=== PATIENT | female | born 1940 | race Caucasian/White ===

== ENCOUNTER 2018-04-09 11:43 | Inpatient (IN) | payer OTHER, MEDICARE ==
[~2018-04-09] VITALS: Ht 162.6 cm; Wt 100.0 kg
[~2018-04-09 11:43] MED LIST: ALPR0.25 PO; ASPI81TA82 PO; CO Q100C9 PO; FLUT50SP EACH NARE; LACTCAP7 PO; LISI-360 PO; MAGN400C2 PO; VITA10002 PO; VITA200017 PO; ZOCO40TA PO
[2018-04-09 11:50] VITALS: BP 152/83; PULSE 111; RESP 16; TEMP 99.4; O2SAT 98
--- NOTE | 2018-04-09 12:22 | PD ---
HPI Chief Complaint: GI Complaint Time Seen by Provider: 11:58 Travel History International Travel<30 days: No Contact w/Intl Traveler<30days: No Traveled to known affect area: No History of Present Illness HPI 77 YO F with PMH of HTN and HLD presents to the ED for evaluation of ~12 hour history of nausea, lower abdominal cramping, watery diarrhea and BRBPR. Patient states that the symptoms onset a few hours after eating a "lobster tail that had been in the freezer a while." She endorses chills. She denies vomiting, chest pain, palpitations, shortness of breath, dysuria, hematuria. Last colonoscopy 5 years ago, negative at that time. Endorses history of hysterectomy, no other abdominal surgeries noted. Endorses history of hemorrhoids. PFSH Past Medical History Arthritis: Yes Asthma: No Autoimmune Disease: No Anxiety: No Depression: No Heart Rhythm Problems: No Cancer: No Cardiovascular Problems: No High Cholesterol: Yes Chest Pain: No Congestive Heart Failure: No COPD: No Cerebrovascular Accident: No Diabetes: No Endocrine: No GERD: Yes Genitourinary: No Hepatitis: No Hiatal Hernia: No Immune Disorder: No Kidney Stones: No Musculoskeletal: Yes (ARTHRITIS, SCOLEOSIS) Neurologic: No Psychiatric: No Reproductive: Yes (POST MENOPAUSAL BLEEDING) Respiratory: No Migraines: No Renal Failure: No Seizures: No Sickle Cell Disease: No Sleep Apnea: No Thyroid Disease: No Ulcer: No Past Surgical History Abdominal Surgery: No AICD: No Arteriovenous Shunt: No Body Medical Devices: NONE Cardiac Surgery: No Ear Surgery: No Endocrine Surgery: No Eye Surgery: No Genitourinary Surgery: No Gynecologic Surgery: Yes (D&C, YENNY OOPHERECTOMY) Insulin Pump: No Joint Replacement: Yes Oral Surgery: No Pacemaker: No Thoracic Surgery: No Social History Tobacco Use: No Substance Use: No Allergies-Medications (Allergen,Severity, Reaction): Coded Allergies: meperidine (Unverified Allergy, Severe, Nausea/Vomiting, 06/21/17) Reported Meds & Prescriptions Reported Meds & Active Scripts Active Reported Probiotic (Lactobacillus) Cap 1 Cap PO DAILY Magnesium (Magnesium Oxide (Mg Supplement) 400 Mg Cap 400 Mg PO DAILY Co Q 10 (Coenzyme Q10) 100 Mg Cap 100 Mg PO DAILY Vitamin B12 (Cyanocobalamin) 1,000 Mcg Tab 1,000 Mcg PO DAILY Vitamin D3 Super Strength (Cholecalciferol) 2,000 Unit Cap 2,000 Unit PO DAILY Fluticasone Propionate (Nasal) 50 Mcg Spr 1 [place] EACH NARE DAILY PRN Lisinopril 10 mg (Lisinopril) 10 Mg Tab 1 Tab PO HS Zocor 40 mg (Simvastatin) 40 Mg Tab 40 Mg PO HS Alprazolam 0.25 Mg Tab 0.25 Mg PO DIRECTED PRN Aspir-81 (Aspirin) 81 Mg Tab 81 Mg PO HS Review of Systems Except as stated in HPI: all other systems reviewed are Neg Physical Exam Narrative GENERAL: Well-nourished, well-developed obese white female no acute distress. SKIN: Focused skin assessment warm/dry. HEAD: Normocephalic. EYES: No scleral icterus. No injection or drainage. NECK: Supple, trachea midline. No JVD or lymphadenopathy. CARDIOVASCULAR: Regular rate and rhythm without murmurs, gallops, or rubs. RESPIRATORY: Breath sounds clear and equal bilaterally. No accessory muscle use. GASTROINTESTINAL: Abdomen soft,nondistended. Tender to palpation of the left lower quadrant. Active bowel sounds. RECTAL EXAM: No masses or tenderness, stool is brown. Guaiac---------. MUSCULOSKELETAL: No cyanosis, or edema. BACK: Nontender without obvious deformity. No CVA tenderness. Data Data Last Documented VS Vital Signs Date Time Temp Pulse Resp B/P (MAP) Pulse Ox O2 Delivery O2 Flow Rate FiO2 04/09/18 12:45 96 Room Air 04/09/18 11:50 99.4 111 16 152/83 (106) Orders Orders Complete Blood Count With Diff (04/09/18 11:58) Comprehensive Metabolic Panel (04/09/18 11:58) Lipase (04/09/18 11:58) Prothrombin Time / Inr (Pt) (04/09/18 11:58) Act Partial Throm Time (Ptt) (04/09/18 11:58) Urinalysis - C+S If Indicated (04/09/18 11:58) Iv Access Insert/Monitor (04/09/18 11:58) Ecg Monitoring (04/09/18 11:58) Oximetry (04/09/18 11:58) Sodium Chloride 0.9% Flush (Ns Flush) (04/09/18 12:00) Type And Screen (04/09/18 11:58) Sodium Chlor 0.9% 1000 Ml Inj (Ns 1000 M (04/09/18 12:30) Ct Abd/Pel W Iv Contrast(Rout) (04/09/18 12:55) Ondansetron Odt (Zofran Odt) (04/09/18 13:15) Iohexol 350 Inj (Omnipaque 350 Inj) (04/09/18 13:44) Dicyclomine (Bentyl) (04/09/18 14:15) Metronidazole 500 Mg Inj (Flagyl 500 Mg (04/09/18 14:30) Ciprofloxacin 400 Mg Premix (Cipro 400 M (04/09/18 14:30) Blood Culture (04/09/18 14:19) Lactic Acid (04/09/18 14:19) Morphine Inj (Morphine Inj) (04/09/18 14:45) Admit Order (Ed Use Only) (04/09/18 14:36) Labs Laboratory Tests Test 04/09/18 12:45 White Blood Count 17.0 TH/MM3 Red Blood Count 4.18 MIL/MM3 Hemoglobin 12.9 GM/DL Hematocrit 38.2 % Mean Corpuscular Volume 91.4 FL Mean Corpuscular Hemoglobin 30.8 PG Mean Corpuscular Hemoglobin Concent 33.7 % Red Cell Distribution Width 13.5 % Platelet Count 278 TH/MM3 Mean Platelet Volume 8.3 FL Neutrophils (%) (Auto) 89.6 % Lymphocytes (%) (Auto) 5.9 % Monocytes (%) (Auto) 4.3 % Eosinophils (%) (Auto) 0.1 % Basophils (%) (Auto) 0.1 % Neutrophils # (Auto) 15.2 TH/MM3 Lymphocytes # (Auto) 1.0 TH/MM3 Monocytes # (Auto) 0.7 TH/MM3 Eosinophils # (Auto) 0.0 TH/MM3 Basophils # (Auto) 0.0 TH/MM3 CBC Comment DIFF FINAL Differential Comment Prothrombin Time 10.1 SEC Prothromb Time International Ratio 1.0 RATIO Activated Partial Thromboplast Time 26.1 SEC Blood Urea Nitrogen 22 MG/DL Creatinine 1.10 MG/DL Random Glucose 150 MG/DL Total Protein 7.4 GM/DL Albumin 3.3 GM/DL Calcium Level 9.4 MG/DL Alkaline Phosphatase 104 U/L Aspartate Amino Transf (AST/SGOT) 17 U/L Alanine Aminotransferase (ALT/SGPT) 23 U/L Total Bilirubin 0.4 MG/DL Sodium Level 139 MEQ/L Potassium Level 4.2 MEQ/L Chloride Level 107 MEQ/L Carbon Dioxide Level 20.5 MEQ/L Anion Gap 12 MEQ/L Estimat Glomerular Filtration Rate 48 ML/MIN Lipase 81 U/L MDM Medical Decision Making Medical Screen Exam Complete: Yes Emergency Medical Condition: Yes Differential Diagnosis Gastroenteritis versus colitis versus diverticulitis versus dehydration versus hemorrhoids versus GI bleed versus other Narrative Course 77 YO F with PMH of HTN and HLD presents to the ED for evaluation of ~12 hour history of nausea, lower abdominal cramping, watery diarrhea and BRBPR. Last colonoscopy 5 years ago, negative at that time. Endorses history of hemorrhoids. Patient is tachycardic on presentation. On exam this is an obese white female, nontoxic appearing, in no acute distress. She does have tenderness to palpation in the left lower quadrant. Rectal exam reveals BRBPR. No external hemorrhoids noted. Suspect this is internal hemorrhoid bleeding. IV was established. Patient was administered ODT Zofran, 1 L normal saline. She complained of pain and was administered 2 mg morphine IV. CBC: WBC 17.0, neutrophil predominant. Hemoglobin 12.9. Coags: INR 1.0. CMP: BUN 22, creatinine 1.10. GFR 48. CT abdomen pelvis: Moderate severity long segment left-sided colitis, nonspecific, but most likely infectious or inflammatory. No abscess, perforation or obstruction noted. Incidental findings. UA pending. Heart rate 84 on recheck. Discussed the results of the workup with the patient. She is agreeable to further treatment and evaluation on an inpatient setting. Blood cultures obtained. Patient was administered IV Flagyl and Cipro. I spoke with Dr. Garcia who agrees to accept the patient to the medicine service. Please see medicine notes for disposition. [facility] Point of Care Internal Pos. & Neg. Controls: Passed Fecal Specimen Occult Blood: Positive Sepsis Criteria SIRS Criteria (2 or more): Heart rate over 90, WBC > 03733, < 4000 or > 10% bands Sepsis Criteria (SIRS+source): Infect source susp/known Diagnosis Primary Impression: Colitis Antonia Bland Apr 09, 2018 12:22
[2018-04-09] MEDS ORDERED: SODIUM CHLOR 0.9% 1000 ML INJ 1,000 ML IV ONE (12:30)
[2018-04-09 12:45] VITALS: O2SAT 96
[2018-04-09 12:53] LABS: AUTOMATED NEUTROPHIL # 15.2 TH/MM3 (1.8-7.7); BASOPHIL % 0.1 % (0.0-2.0); EOSINOPHIL % 0.1 % (0.0-4.0); HEMATOCRIT 38.2 % (35.0-46.0); HEMOGLOBIN 12.9 GM/DL (11.6-15.3); LYMPH % 5.9 % (9.0-44.0); MEAN CELL VOLUME 91.4 FL (80.0-100.0); MEAN CORPUSCULAR HEMOGLOBIN 30.8 PG (27.0-34.0); MEAN CORPUSCULAR HGB CONC 33.7 % (32.0-36.0); MEAN PLATELET VOLUME 8.3 FL (7.0-11.0); MONO % 4.3 % (0.0-8.0); MONOCYTE # 0.7 TH/MM3 (0-0.9); NEUT % 89.6 % (16.0-70.0); PLATELET COUNT 278 TH/MM3 (150-450); RED BLOOD COUNT 4.18 MIL/MM3 (4.00-5.30); RED CELL DISTRIBUTION WIDTH 13.5 % (11.6-17.2)
[2018-04-09 13:07] LABS: PROTHROMBIN TIME - PATIENT 10.1 SEC (9.8-11.6)
[2018-04-09] MEDS ORDERED: ONDANSETRON ODT 4 MG TAB PO ONE (13:15)
[2018-04-09 13:17] LABS: ALBUMIN 3.3 GM/DL (3.4-5.0); ALT (GPT) 23 U/L (10-53); AST (GOT) 17 U/L (15-37); BICARBONATE 20.5 MEQ/L (21.0-32.0); BLOOD UREA NITROGEN 22 MG/DL (7-18); CALCIUM 9.4 MG/DL (8.5-10.1); CHLORIDE 107 MEQ/L (98-107); GLOMERULAR FILTRATION RATE 48 ML/MIN (>89); GLUCOSE,RANDOM 150 MG/DL (74-106); SODIUM (NA) 139 MEQ/L (136-145)
[2018-04-09 13:19] LABS: ALKALINE PHOSPHATASE 104 U/L (45-117); TOTAL BILIRUBIN ADULT 0.4 MG/DL (0.2-1.0); TOTAL PROTEIN 7.4 GM/DL (6.4-8.2)
[2018-04-09] MEDS ORDERED: IOHEXOL 350 MG/ML 10 ML VIAL (for RAD DIAG) IVCONTRAST ONE (13:44)
--- NOTE | 2018-04-09 14:08 | PD ---
Data Data Last Documented VS Vital Signs Date Time Temp Pulse Resp B/P (MAP) Pulse Ox O2 Delivery O2 Flow Rate FiO2 04/09/18 12:45 96 Room Air 04/09/18 11:50 99.4 111 16 152/83 (106) Orders Orders Complete Blood Count With Diff (04/09/18 11:58) Comprehensive Metabolic Panel (04/09/18 11:58) Lipase (04/09/18 11:58) Prothrombin Time / Inr (Pt) (04/09/18 11:58) Act Partial Throm Time (Ptt) (04/09/18 11:58) Urinalysis - C+S If Indicated (04/09/18 11:58) Iv Access Insert/Monitor (04/09/18 11:58) Ecg Monitoring (04/09/18 11:58) Oximetry (04/09/18 11:58) Sodium Chloride 0.9% Flush (Ns Flush) (04/09/18 12:00) Type And Screen (04/09/18 11:58) Sodium Chlor 0.9% 1000 Ml Inj (Ns 1000 M (04/09/18 12:30) Ct Abd/Pel W Iv Contrast(Rout) (04/09/18 12:55) Ondansetron Odt (Zofran Odt) (04/09/18 13:15) Iohexol 350 Inj (Omnipaque 350 Inj) (04/09/18 13:44) Dicyclomine (Bentyl) (04/09/18 14:15) Metronidazole 500 Mg Inj (Flagyl 500 Mg (04/09/18 14:30) Ciprofloxacin 400 Mg Premix (Cipro 400 M (04/09/18 14:30) Blood Culture (04/09/18 14:19) Lactic Acid (04/09/18 14:19) Morphine Inj (Morphine Inj) (04/09/18 14:45) Admit Order (Ed Use Only) (04/09/18 14:36) Labs Laboratory Tests Test 04/09/18 12:45 White Blood Count 17.0 TH/MM3 Red Blood Count 4.18 MIL/MM3 Hemoglobin 12.9 GM/DL Hematocrit 38.2 % Mean Corpuscular Volume 91.4 FL Mean Corpuscular Hemoglobin 30.8 PG Mean Corpuscular Hemoglobin Concent 33.7 % Red Cell Distribution Width 13.5 % Platelet Count 278 TH/MM3 Mean Platelet Volume 8.3 FL Neutrophils (%) (Auto) 89.6 % Lymphocytes (%) (Auto) 5.9 % Monocytes (%) (Auto) 4.3 % Eosinophils (%) (Auto) 0.1 % Basophils (%) (Auto) 0.1 % Neutrophils # (Auto) 15.2 TH/MM3 Lymphocytes # (Auto) 1.0 TH/MM3 Monocytes # (Auto) 0.7 TH/MM3 Eosinophils # (Auto) 0.0 TH/MM3 Basophils # (Auto) 0.0 TH/MM3 CBC Comment DIFF FINAL Differential Comment Prothrombin Time 10.1 SEC Prothromb Time International Ratio 1.0 RATIO Activated Partial Thromboplast Time 26.1 SEC Blood Urea Nitrogen 22 MG/DL Creatinine 1.10 MG/DL Random Glucose 150 MG/DL Total Protein 7.4 GM/DL Albumin 3.3 GM/DL Calcium Level 9.4 MG/DL Alkaline Phosphatase 104 U/L Aspartate Amino Transf (AST/SGOT) 17 U/L Alanine Aminotransferase (ALT/SGPT) 23 U/L Total Bilirubin 0.4 MG/DL Sodium Level 139 MEQ/L Potassium Level 4.2 MEQ/L Chloride Level 107 MEQ/L Carbon Dioxide Level 20.5 MEQ/L Anion Gap 12 MEQ/L Estimat Glomerular Filtration Rate 48 ML/MIN Lipase 81 U/L MDM Supervised Visit with ANGELIKA: No Narrative Course I, Dr. Acuna, have reviewed the advance practice practitioner's documentation and am in agreement, met with the patient face to face, made the diagnosis, and the medical decision making was done by me. *My assessment and Findings: Patient seen and examined by me in addition to Domingo Bland, 77-year-old female with left lower quadrant abdominal pain does have elevated white blood cell count mildly tachycardic. I reviewed the CAT scan it appears that she might have diverticulitis. Awaiting for radiology to confirm. I have ordered a dose of Toradol and Bentyl. will continue to reassess peer Diagnosis Primary Impression: Sepsis Additional Impression: Colitis Admitting Information Admitting Physician Requests: Admit Condition: Stable Jonathan Acuna MD Apr 09, 2018 14:08
--- NOTE | 2018-04-09 14:12 | RADRPT ---
EXAM DATE: 04/09/2018 1:58 PM EDT AGE/SEX: 77 years / Female INDICATIONS: Left lower abdomen pain today. CLINICAL DATA: This is the patient's initial encounter. Patient reports that signs and symptoms have been present for 1 day and indicates a pain score of 7/10. MEDICAL/SURGICAL HISTORY: Hypertension. Hysterectomy. ORAL CONTRAST: No oral contrast ingested. RADIATION DOSE: 17.53 CTDI (mGy) COMPARISON: No prior [facility] exams available for comparison. TECHNIQUE: Multiple contiguous axial images were obtained through the abdomen and pelvis following b olus infusion of 94 ml Omnipaque 350 (iohexol) nonionic water-soluble contrast as a single exam dos e. No oral contrast ingested. Using automated exposure control and adjustment of the mA and/or kV ac cording to patient size, the radiation dose was kept as low as reasonably achievable to obtain optima l diagnostic quality images. FINDINGS: There is long segment left side colitis, moderate of the descending and proximal sigmoid: And mild of the remaining sigmoid colon and the rectum. No abscess, perforation or obstruction. I don't see any significant diverticular disease. A 2.8 cm benign-appearing cyst is seen of the left hepatic lobe. The liver otherwise appears normal. Spleen, pancreas, adrenal glands and kidneys are without an acute abnormality. Several peripelvic cys ts are seen of the left kidney. The abdominal aorta is atherosclerotic. There is no aneurysm. Visualized lung bases are clear. No acute bony abnormality demonstrated. CONCLUSION: 1. Moderate severity long segment left side colitis, nonspecific but most likely infectious or infla mmatory. No abscess, perforation or obstruction. 2. Incidental findings include hepatic and left renal cysts as well as atherosclerosis of the abdomi nal aorta. Electronically signed by: Steve Costa MD 04/09/2018 2:11 PM EDT
[2018-04-09] MEDS ORDERED: DICYCLOMINE HCL 10 MG CAP PO ONE (14:15)
[2018-04-09] MEDS ORDERED: KETOROLAC TROMETHAMINE 30 MG/ML (IVP) VIAL IV PUSH ONE (14:15)
[2018-04-09] MEDS ORDERED: metroNIDAZOLE 500 MG INJ 100 ML IV ONE (14:30)
[2018-04-09] MEDS ORDERED: CIPROFLOXACIN 400 MG PREMIX 200 ML IV ONE (14:30)
[2018-04-09] MEDS ORDERED: MORPHINE SULFATE 4 MG/ML INJ ONE (14:38)
[2018-04-09] MEDS ORDERED: MORPHINE SULFATE 2 MG/ML SYRINGE IV PUSH ONE (14:45)
[2018-04-09] MEDS ORDERED: FLUTICASONE PROPIONATE 50 MCG/ACT 16 GM NASAL SPRAY EACH NARE PRN (14:45)
[2018-04-09 14:46] VITALS: BP 170/71; PULSE 84; RESP 17; O2SAT 100
--- NOTE | 2018-04-09 14:56 | HHI.HP ---
[facility] Service [facility] Primary Care Physician María Ritter Do, MD Admission Diagnosis sepsis, colitis Diagnoses: (1) Colitis Diagnosis: Principal Chief Complaint: abdominal pain Travel History International Travel<30 Days: No Contact w/Intl Traveler <30 Da: No Traveled to Known Affected Are: No History of Present Illness patient is a 77 y/o female with history of hypertension and dyslipidemia who presented to ER with abdominal pain. she says that the pain started last night. pain is more or less localized to LLQ.pain was severe and colicky in nature. she had some nausea with no emesis. she had some fever, chills and night sweats. she says that when she went to bathroom this morning she had loose blood bowel movement with passing of about a cup of bight red blood. she says that she had some frozen lobster last night which probably ' was the reason'. she had a colonoscopy five or six years ago with no reported abnormality. Review of Systems Constitutional: DENIES: Fever, Weight loss, Chills, Night Sweats Eyes: DENIES: Blurred vision, Diplopia, Vision loss, Double Vision Ears, nose, mouth, throat: DENIES: Tinnitus, Vertigo, Throat pain, Epistaxis Respiratory: DENIES: Apneas, Cough, Snoring, Wheezing, Hemoptysis, Sputum production, Shortness of breath Cardiovascular: DENIES: Chest pain, Palpitations, Syncope, Dyspnea on Exertion , PND, Lower Extremity Edema, Orthopnea, Claudication Gastrointestinal: COMPLAINS OF: Abdominal pain, Bloody stools, Nausea, DENIES: Black stools, Constipation, Diarrhea, Vomiting, Difficulty Swallowing, Anorexia Genitourinary: DENIES: Urinary frequency, Urgency, Hematuria, Dysuria Musculoskeletal: DENIES: Joint pain, Muscle aches, Stiffness, Joint Swelling Integumentary: DENIES: Rash Neurologic: DENIES: Abnormal gait, Headache, Localized weakness, Paresthesias, Seizures, Speech Problems, Tremor, Poor Balance Psychiatric: DENIES: Anxiety, Confusion, Mood changes, Depression, Hallucinations, Agitation, Suicidal Ideation, Homicidal Ideation, Delusions Past Family Social History Past Medical History hypertension/ dyslipidemia Past Surgical History hysterectomy. Reported Medications Probiotic (Lactobacillus) Cap 1 Cap PO DAILY Magnesium (Magnesium Oxide (Mg Supplement) 400 Mg Cap 400 Mg PO DAILY Co Q 10 (Coenzyme Q10) 100 Mg Cap 100 Mg PO DAILY Vitamin B12 (Cyanocobalamin) 1,000 Mcg Tab 1,000 Mcg PO DAILY Vitamin D3 (Cholecalciferol) 2,000 Unit Cap 2,000 Unit PO DAILY Fluticasone Propionate (Nasal) 50 Mcg Spr 1 [place] EACH NARE DAILY PRN Lisinopril 10 mg (Lisinopril) 10 Mg Tab 1 Tab PO HS Zocor 40 mg (Simvastatin) 40 Mg Tab 40 Mg PO HS Alprazolam 0.25 Mg Tab 0.25 Mg PO DIRECTED PRN Aspir-81 (Aspirin) 81 Mg Tab 81 Mg PO HS Allergies: Coded Allergies: meperidine (Unverified Allergy, Severe, Nausea/Vomiting, 06/21/17) Active Ordered Medications Inpatient Medications Ciprofloxacin/ Dextrose 200 ml @ 200 mls/hr ONCE ONCE IV Last administered on 04/09/18at 14:43; Start 04/09/18 at 14:30; Stop 04/09/18 at 15:29 Dicyclomine HCl (Bentyl) 20 mg ONCE ONCE PO Last administered on 04/09/18at 14: 42; Start 04/09/18 at 14:15; Stop 04/09/18 at 14:16; Status DC Metronidazole 100 ml @ 100 mls/hr ONCE ONCE IV ; Start 04/09/18 at 14:30; Stop 04/09/18 at 15:29 Morphine Sulfate (Morphine Inj) 2 mg ONCE ONCE IV PUSH ; Start 04/09/18 at 14:45 ; Stop 04/09/18 at 14:46 Ondansetron HCl (Zofran Odt) 4 mg ONCE ONCE PO Last administered on 04/09/18at 14:02; Start 04/09/18 at 13:15; Stop 04/09/18 at 13:16; Status DC Sodium Chloride 1,000 ml @ 999 mls/hr BOLUS ONCE IV Last administered on at 12:50; Start 04/09/18 at 12:30; Stop 04/09/18 at 13:30; Status DC Sodium Chloride (NS Flush) 2 ml UNSCH PRN IV FLUSH FLUSH AFTER USING IV ACCESS ; Start 04/09/18 at 12:00 Family History esophageal cancer in sister. Social History doesn't smoke. drinks occasionally. Physical Exam Vital Signs Vital Signs Date Time Temp Pulse Resp B/P (MAP) Pulse Ox O2 Delivery O2 Flow Rate FiO2 04/09/18 12:45 96 Room Air 04/09/18 11:50 99.4 111 16 152/83 (106) 98 Physical Exam GENERAL: This is a well-nourished, well-developed patient, in no apparent distress. SKIN: No rashes, ecchymoses or lesions. Cool and dry. HEAD: Atraumatic. Normocephalic. No temporal or scalp tenderness. EYES: Pupils equal round and reactive. Extraocular motions intact. No scleral icterus. No injection or drainage. ENT: Nose without bleeding, purulent drainage or septal hematoma. Throat without erythema, tonsillar hypertrophy or exudate. Uvula midline. Airway patent. NECK: Trachea midline. No JVD or lymphadenopathy. Supple, nontender, no meningeal signs. CARDIOVASCULAR: Regular rate and rhythm without murmurs, gallops, or rubs. RESPIRATORY: Clear to auscultation. Breath sounds equal bilaterally. No wheezes , rales, or rhonchi. GASTROINTESTINAL: Abdomen soft, LLQ tenderness, nondistended. No hepato- splenomegaly, or palpable masses. No guarding. MUSCULOSKELETAL: Extremities without clubbing, cyanosis, or edema. No joint tenderness, effusion, or edema noted. No calf tenderness. Negative Homans sign bilaterally. NEUROLOGICAL: Awake and alert. Cranial nerves II through XII intact. Motor and sensory grossly within normal limits. Five out of 5 muscle strength in all muscle groups. Normal speech. Laboratory Laboratory Tests Test 04/09/18 12:45 White Blood Count 17.0 Red Blood Count 4.18 Hemoglobin 12.9 Hematocrit 38.2 Mean Corpuscular Volume 91.4 Mean Corpuscular Hemoglobin 30.8 Mean Corpuscular Hemoglobin Concent 33.7 Red Cell Distribution Width 13.5 Platelet Count 278 Mean Platelet Volume 8.3 Neutrophils (%) (Auto) 89.6 Lymphocytes (%) (Auto) 5.9 Monocytes (%) (Auto) 4.3 Eosinophils (%) (Auto) 0.1 Basophils (%) (Auto) 0.1 Neutrophils # (Auto) 15.2 Lymphocytes # (Auto) 1.0 Monocytes # (Auto) 0.7 Eosinophils # (Auto) 0.0 Basophils # (Auto) 0.0 CBC Comment DIFF FINAL Differential Comment Prothrombin Time 10.1 Prothromb Time International Ratio 1.0 Activated Partial Thromboplast Time 26.1 Blood Urea Nitrogen 22 Creatinine 1.10 Random Glucose 150 Total Protein 7.4 Albumin 3.3 Calcium Level 9.4 Alkaline Phosphatase 104 Aspartate Amino Transf (AST/SGOT) 17 Alanine Aminotransferase (ALT/SGPT) 23 Total Bilirubin 0.4 Sodium Level 139 Potassium Level 4.2 Chloride Level 107 Carbon Dioxide Level 20.5 Anion Gap 12 Estimat Glomerular Filtration Rate 48 Lipase 81 Result Diagram: 04/09/18 1245 04/09/18 1245 Imaging Last Impressions Abdomen/Pelvis CT 04/09/18 1255 Signed Impressions: CONCLUSION: 1. Moderate severity long segment left side colitis, nonspecific but most like ly infectious or inflammatory. No abscess, perforation or obstruction. 2. Incidental findings include hepatic and left renal cysts as well as atheros clerosis of the abdominal aorta. Caprini VTE Risk Assessment Caprini VTE Risk Assessment: Mod/High Risk (score >= 2) Caprini Risk Assessment Model Point Value = 1 Point Value = 2 Point Value = 3 Point Value = 5 Age 41-60 Minor surgery BMI > 25 kg/m2 Swollen legs Varicose veins or History of unexplained or recurrent spontaneous Oral contraceptives or hormone replacement Sepsis (< 1 month) Serious lung disease, including pneumonia (< 1 month) Abnormal pulmonary function Acute myocardial infarction Congestive heart failure (< 1 month) History of inflammatory bowel disease Medical patient at bed rest Age 61-74 Arthroscopic surgery Major open surgery (> 45 min) Laparoscopic surgery (> 45 min) Malignancy Confined to bed (> 72 hours) Immobilizing plaster cast Central venous access Age >= 75 History of VTE Family history of VTE Factor V Leiden Prothrombin 30068G Lupus anticoagulant Anticardiolipin antibodies Elevated serum homocysteine Heparin-induced thrombocytopenia Other congenital or acquired thrombophilia Stroke (< 1 month) Elective arthroplasty Hip, pelvis, or leg fracture Acute spinal cord injury (< 1 month) Prophylaxis Regimen Total Risk Factor Score Risk Level Prophylaxis Regimen 0-1 Low Early ambulation 2 Moderate Order ONE of the following: *Sequential Compression Device (SCD) *Heparin 5000 units SQ BID 3-4 Higher Order ONE of the following medications: *Heparin 5000 units SQ TID *Enoxaparin/Lovenox 40 mg SQ daily (WT < 150 kg, CrCl > 30 mL/min) *Enoxaparin/Lovenox 30 mg SQ daily (WT < 150 kg, CrCl > 10-29 mL/min) *Enoxaparin/Lovenox 30 mg SQ BID (WT < 150 kg, CrCl > 30 mL/min) AND/OR *Sequential Compression Device (SCD) 5 or more Highest Order ONE of the following medications: *Heparin 5000 units SQ TID (Preferred with Epidurals) *Enoxaparin/Lovenox 40 mg SQ daily (WT < 150 kg, CrCl > 30 mL/min) *Enoxaparin/Lovenox 30 mg SQ daily (WT < 150 kg, CrCl > 10-29 mL/min) *Enoxaparin/Lovenox 30 mg SQ BID (WT < 150 kg, CrCl > 30 mL/min) AND *Sequential Compression Device (SCD) Assessment and Plan Assessment and Plan A/P - colitis with LLQ pain/ rectal bleed NPO for now- continue supportive care with IV fluid/ antiemetics and pain control- continue with IV antibiotics and consult GI. -hypertension/ dyslipidemia; resume home meds. -DVT prophylaxis with SCD's- no chemical prophylaxis due to rectal bleed. Discussed Condition With ER physician and the patient. Physician Certification 2 Midnight Certification Type: Admission for Inpatient Services Order for Inpatient Services The services are ordered in accordance with Medicare regulations or non- Medicare payer requirements, as applicable. In the case of services not specified as inpatient-only, they are appropriately provided as inpatient services in accordance with the 2-midnight benchmark. Estimated LOS (days): 2 days is the estimated time the patient will need to remain in the hospital, assuming treatment plan goals are met and no additional complications. Post-Hospital Plan: Home Taye Garcia MD Apr 09, 2018 14:56
[2018-04-09] MEDS ORDERED: ONDANSETRON ODT 4 MG TAB PO PRN (15:00)
[2018-04-09] MEDS: SODIUM CHLOR 0.9% 1000 ML INJ 1,000 ML IV SCH (15:57)
[2018-04-09 16:23] VITALS: BP 173/68; PULSE 81; RESP 17; O2SAT 96
[2018-04-09 16:45] VITALS: BP 156/68; PULSE 87; RESP 18; TEMP 98.4; O2SAT 98
[2018-04-09] MEDS: PRAVASTATIN SOD 80 MG TAB PO SCH (20:46)
[2018-04-09] MEDS: LISINOPRIL 10 MG TAB PO SCH (20:46)
[2018-04-09] MEDS: MORPHINE SULFATE 2 MG/ML SYRINGE IV PUSH PRN (20:47)
[2018-04-09] MEDS: metroNIDAZOLE 500 MG INJ 100 ML IV SCH (20:48)
[2018-04-09 21:16] LABS: BILIRUBIN, URINE NEG (NEG); BLOOD, URINE TRACE (NEG); GLUCOSE,URINE NEG (NEG); KETONE, URINE 10 mg/dL (NEG); MUCUS URINE FEW /lpf (OCC); NITRITE,URINE NEG (NEG); SQUAMOUS EPITHELIAL CELL URINE 1 /hpf (0-5); URINE COLOR YELLOW (YELLW/STRAW); URINE LEUKOCYTE ESTERASE NEG (NEG)
[2018-04-09 21:30] VITALS: BP 150/65; PULSE 85; RESP 18; TEMP 99; O2SAT 98
[2018-04-10] VITALS: BP 145/69; PULSE 80; RESP 19; TEMP 98.9; O2SAT 99
[2018-04-10] MEDS: SODIUM CHLOR 0.9% 1000 ML INJ 1,000 ML IV SCH ×3 (00:45→17:58)
[2018-04-10] MEDS: CIPROFLOXACIN 400 MG PREMIX 200 ML IV SCH ×2 (01:20→13:07)
[2018-04-10] MEDS: MORPHINE SULFATE 2 MG/ML SYRINGE IV PUSH PRN (01:24)
[2018-04-10 04:20] VITALS: BP 140/66; PULSE 80; RESP 20; TEMP 98; O2SAT 99
[2018-04-10] MEDS: metroNIDAZOLE 500 MG INJ 100 ML IV SCH ×3 (05:37→21:56)
[2018-04-10 07:42] VITALS: BP 117/56; PULSE 81; RESP 18; TEMP 98.4; O2SAT 92
[2018-04-10] MEDS: SODIUM CHLORIDE 0.9% FLUSH 10 ML FLUSH IV FLUSH PRN ×2 (09:02→21:56)
[2018-04-10] MEDS: MORPHINE SULFATE 4 MG/ML INJ IV PUSH PRN ×3 (09:02→18:59)
--- NOTE | 2018-04-10 11:32 | PD.CONS ---
HPI History of Present Illness This is a 77 year old F with PMH significant for HTN and dyslipidemia who presented to the ER yesterday with complaints of lower abdominal pain, diarrhea , and rectal bleeding that began Tuesday night into Tuesday morning. Pt states symptoms began on Tuesday night with profuse diarrhea and lower abdominal pain. Early Tuesday morning she began having blood in her stool, states was mostly blood and not much stool mixed in. Also having lower abdominal pain, bilateral but worse on the left, pain is intermittent, she describes it as "gas pains". Associated sweats and chills. Also has had some nausea, denies emesis, nausea has subsided with medication. Pt reports having frozen lobster prior to symptoms starting. Denies history of C. Diff, recent travel, recent antibiotics. Denies unintentional weight loss. CT done reveals moderate severity long segment left side colitis. Labs reveal leukocytosis, pt has been started on Cipro and Flagyl by the hospitalist. Last colonoscopy and EGD were done 5-6 years ago and pt reports normal exam. Occasional ETOH. Denies smoking. Takes Advil once daily. She thinks her sister from some sort of gastric cancer. (Nova Lewis) PFSH Past Medical History HTN Dyslipidemia Past Surgical History hysterectomy (Nova Lewis) Coded Allergies: meperidine (Unverified Allergy, Severe, Nausea/Vomiting, 06/21/17) Family History esophageal cancer in sister. Social History ETOH- occasional glass of wine Denies smoking (Nova Lewis) Review of Systems Gastrointestinal: COMPLAINS OF: Abdominal pain, Bloody stools, Diarrhea, Nausea , Swelling of Abdomen, DENIES: Black stools, Constipation, Vomiting, Difficulty Swallowing, Anorexia, Odynophagia, Heartburn, Hematemesis (Nova Lewis) GI Exam Vitals I&O Vital Signs Date Time Temp Pulse Resp B/P (MAP) Pulse Ox O2 Delivery O2 Flow Rate FiO2 04/10/18 07:42 98.4 81 18 117/56 (76) 92 04/10/18 04:20 98.0 80 20 140/66 (90) 99 04/10/18 00:00 98.9 80 19 145/69 (94) 99 04/09/18 21:30 99.0 85 18 150/65 (93) 98 04/09/18 16:45 98.4 87 18 156/68 (97) 98 04/09/18 16:23 81 17 173/68 (103) 96 Room Air 04/09/18 14:46 84 17 170/71 (104) 100 Room Air 04/09/18 12:45 96 Room Air 04/09/18 11:50 99.4 111 16 152/83 (106) 98 I/O 04/09/18 04/09/18 04/09/18 04/10/18 04/10/18 04/10/18 07:00 15:00 23:00 07:00 15:00 23:00 Intake Total 100 ml 843 ml Balance 100 ml 843 ml Intake Oral 0 ml 0 ml IV Total 100 ml 843 ml # Voids 1 3 # Bowel Movements 0 0 Imaging Last Impressions Abdomen/Pelvis CT 04/09/18 1255 Signed Impressions: CONCLUSION: 1. Moderate severity long segment left side colitis, nonspecific but most like ly infectious or inflammatory. No abscess, perforation or obstruction. 2. Incidental findings include hepatic and left renal cysts as well as atheros clerosis of the abdominal aorta. Laboratory Test 04/09/18 12:45 04/09/18 14:50 04/09/18 20:00 White Blood Count 17.0 TH/MM3 Red Blood Count 4.18 MIL/MM3 Hemoglobin 12.9 GM/DL Hematocrit 38.2 % Mean Corpuscular Volume 91.4 FL Mean Corpuscular Hemoglobin 30.8 PG Mean Corpuscular Hemoglobin Concent 33.7 % Red Cell Distribution Width 13.5 % Platelet Count 278 TH/MM3 Mean Platelet Volume 8.3 FL Neutrophils (%) (Auto) 89.6 % Lymphocytes (%) (Auto) 5.9 % Monocytes (%) (Auto) 4.3 % Eosinophils (%) (Auto) 0.1 % Basophils (%) (Auto) 0.1 % Neutrophils # (Auto) 15.2 TH/MM3 Lymphocytes # (Auto) 1.0 TH/MM3 Monocytes # (Auto) 0.7 TH/MM3 Eosinophils # (Auto) 0.0 TH/MM3 Basophils # (Auto) 0.0 TH/MM3 CBC Comment DIFF FINAL Differential Comment Prothrombin Time 10.1 SEC Prothromb Time International Ratio 1.0 RATIO Activated Partial Thromboplast Time 26.1 SEC Blood Urea Nitrogen 22 MG/DL Creatinine 1.10 MG/DL Random Glucose 150 MG/DL Total Protein 7.4 GM/DL Albumin 3.3 GM/DL Calcium Level 9.4 MG/DL Alkaline Phosphatase 104 U/L Aspartate Amino Transf (AST/SGOT) 17 U/L Alanine Aminotransferase (ALT/SGPT) 23 U/L Total Bilirubin 0.4 MG/DL Sodium Level 139 MEQ/L Potassium Level 4.2 MEQ/L Chloride Level 107 MEQ/L Carbon Dioxide Level 20.5 MEQ/L Anion Gap 12 MEQ/L Estimat Glomerular Filtration Rate 48 ML/MIN Lipase 81 U/L Lactic Acid Level 2.0 mmol/L Urine Color YELLOW Urine Turbidity CLEAR Urine pH 6.0 Urine Specific [place] GREATER THAN 1.050 Urine Protein TRACE mg/dL Urine Glucose (UA) NEG mg/dL Urine Ketones 10 mg/dL Urine Occult Blood TRACE Urine Nitrite NEG Urine Bilirubin NEG Urine Urobilinogen LESS THAN 2.0 MG/DL Urine Leukocyte Esterase NEG Urine RBC 1 /hpf Urine WBC 2 /hpf Urine Squamous Epithelial Cells 1 /hpf Urine Mucus FEW /lpf Microscopic Urinalysis Comment CULT NOT INDICATED Date/Time Source Procedure Growth Status 04/09/18 14:55 Blood Peripheral Aerobic Blood Culture - Preliminary NO GROWTH IN 1 DAY Resulted 04/09/18 14:55 Blood Peripheral Anaerobic Blood Culture - Preliminary NO GROWTH IN 1 DAY Resulted Physical Examination HEENT: Normocephalic; atraumatic CHEST: Even/unlabored CARDIAC: RRR ABDOMEN: Soft, nondistended, lower abdominal TTP worse on L side, bowel sounds active EXTREMITIES: No clubbing, cyanosis, or edema. SKIN: Normal; no rash; no jaundice. MILIEU MANAGER: Alert and oriented times three. (Nova Lewis) Assessment and Plan Plan Assessment: - Diarrhea with rectal bleeding Began Tuesday at midnight and lasted into early Tuesday morning. Last BM was early Tuesday morning. States mostly blood and little stool mixed in. Associated lower abdominal pain worse on the left side. Pt denies history of C. Diff, recent travel, recent abx. Of note, reports eating frozen lobster prior to symptom onset. Associated sweats and chills. Denies sick contacts with similar symptoms. CT abdomen and pelvis W IV contrast --> Moderate severity long segment left side colitis, nonspecific but most likely infectious or inflammatory. No abscess, perforation or obstruction. Incidental findings include hepatic and left renal cysts as well as atherosclerosis of the abdominal aorta. Plan: Stool cultures Monitor H/H Transfuse as indicated Continue Cipro and Flagyl Further recommendations based on clinical course and results of above Pt has been seen and examined by myself and Dr. Villagomez and this note is written on his behalf (Nova Lewis) Physician Comments Picture compatible with infectious colitis, check cultures and antibiotics for now. Will follow up with you. (Vimal Villagomez MD) Nova Lewis Apr 10, 2018 11:32 Vimal Villagomez MD Apr 10, 2018 16:30
--- NOTE | 2018-04-10 11:49 | HHI.PR ---
Subjective Remarks in no acute distress. abdominal pain is better. had some more rectal bleed earlier today. no nausea or vomiting. afebrile. Objective Vitals Vital Signs Date Time Temp Pulse Resp B/P (MAP) Pulse Ox O2 Delivery O2 Flow Rate FiO2 04/10/18 07:42 98.4 81 18 117/56 (76) 92 04/10/18 04:20 98.0 80 20 140/66 (90) 99 04/10/18 00:00 98.9 80 19 145/69 (94) 99 04/09/18 21:30 99.0 85 18 150/65 (93) 98 04/09/18 16:45 98.4 87 18 156/68 (97) 98 04/09/18 16:23 81 17 173/68 (103) 96 Room Air 04/09/18 14:46 84 17 170/71 (104) 100 Room Air 04/09/18 12:45 96 Room Air 04/09/18 11:50 99.4 111 16 152/83 (106) 98 I/O 04/09/18 04/09/18 04/09/18 04/10/18 04/10/18 04/10/18 07:00 15:00 23:00 07:00 15:00 23:00 Intake Total 100 ml 843 ml Balance 100 ml 843 ml Intake Oral 0 ml 0 ml IV Total 100 ml 843 ml # Voids 1 3 # Bowel Movements 0 0 Result Diagram: 04/09/18 1245 04/09/18 1245 Imaging Last Impressions Abdomen/Pelvis CT 04/09/18 1255 Signed Impressions: CONCLUSION: 1. Moderate severity long segment left side colitis, nonspecific but most like ly infectious or inflammatory. No abscess, perforation or obstruction. 2. Incidental findings include hepatic and left renal cysts as well as atheros clerosis of the abdominal aorta. Objective Remarks GENERAL: This is a well-nourished, well-developed patient, in no apparent distress. CARDIOVASCULAR: Regular rate and regular rhythm without murmurs, gallops, or rubs. RESPIRATORY: Clear to auscultation. Breath sounds equal bilaterally. No wheezes , rales, or rhonchi. GASTROINTESTINAL: Abdomen soft, non-tender, nondistended. Normal, active bowel sounds MUSCULOSKELETAL: Extremities without clubbing, cyanosis, or edema. NEURO: Alert & Oriented x4 to person, place, time, situation. Moves all ext x4 Medications and IVs Inpatient Medications Alprazolam (Xanax) 0.25 mg HS PRN PO ANXIETY; Start 04/09/18 at 14:45 Ciprofloxacin/ Dextrose 200 ml @ 200 mls/hr Q12H IV Last administered on at 01:20; Start 04/10/18 at 02:00 Dicyclomine HCl (Bentyl) 20 mg ONCE ONCE PO Last administered on 04/09/18at 14: 42; Start 04/09/18 at 14:15; Stop 04/09/18 at 14:16; Status DC Fluticasone Propionate (Flonase Ender Spr) 1 spray DAILY PRN EACH NARE NASAL CONGESTION; Start 04/09/18 at 14:45 Lisinopril (Prinivil) 10 mg HS PO Last administered on 04/09/18at 20:46; Start at 21:00 Metronidazole 100 ml @ 100 mls/hr Q8H IV Last administered on 04/10/18at 05:37; Start 04/09/18 at 22:00 Morphine Sulfate (Morphine Inj) 2 mg Q4H PRN IV PUSH PAIN SCALE 1 TO 10 Last administered on 04/10/18at 09:02; Start 04/10/18 at 07:30 Ondansetron HCl (Zofran Odt) 4 mg Q8HR PRN PO NAUSEA; Start 04/09/18 at 15:00 Pravastatin Sodium (Pravachol) 80 mg HS PO Last administered on 04/09/18at 20:46 ; Start 04/09/18 at 21:00 Sodium Chloride 1,000 ml @ 100 mls/hr Q10H IV Last administered on 04/10/18at 04 :36; Start 04/09/18 at 14:45 Sodium Chloride (NS Flush) 2 ml UNSCH PRN IV FLUSH FLUSH AFTER USING IV ACCESS Last administered on 04/10/18at 09:02; Start 04/09/18 at 12:00 A/P Problem List: (1) Colitis ICD Code: K52.9 - Noninfective gastroenteritis and colitis, unspecified Status: Acute Assessment and Plan - colitis with LLQ pain/ rectal bleed continue supportive care with IV fluid/ antiemetics and pain control- continue with IV antibiotics . GI consult appreciated.CBC today pending. -hypertension/ dyslipidemia; resumed home meds. -DVT prophylaxis with SCD's- no chemical prophylaxis due to rectal bleed. Taye Garcia MD Apr 10, 2018 11:49
[2018-04-10 11:50] VITALS: BP 120/57; PULSE 86; RESP 20; TEMP 100.3; O2SAT 97
[2018-04-10 12:26] LABS: AUTOMATED NEUTROPHIL # 8.7 TH/MM3 (1.8-7.7); BASOPHIL # 0.1 TH/MM3 (0-0.2); BASOPHIL % 0.5 % (0.0-2.0); EOSINOPHIL # 0.2 TH/MM3 (0-0.4); EOSINOPHIL % 1.5 % (0.0-4.0); HEMATOCRIT 33.4 % (35.0-46.0); LYMPH % 15.8 % (9.0-44.0); LYMPHOCYTE # 1.8 TH/MM3 (1.0-4.8); MEAN CELL VOLUME 92.6 FL (80.0-100.0); MEAN CORPUSCULAR HEMOGLOBIN 30.6 PG (27.0-34.0); MEAN CORPUSCULAR HGB CONC 33.1 % (32.0-36.0); MEAN PLATELET VOLUME 8.6 FL (7.0-11.0); MONO % 7.7 % (0.0-8.0); MONOCYTE # 0.9 TH/MM3 (0-0.9); NEUT % 74.5 % (16.0-70.0); PLATELET COUNT 279 TH/MM3 (150-450); RED BLOOD COUNT 3.61 MIL/MM3 (4.00-5.30); RED CELL DISTRIBUTION WIDTH 13.9 % (11.6-17.2); WHITE BLOOD COUNT 11.6 TH/MM3 (4.0-11.0)
[2018-04-10 13:07] LABS: BICARBONATE 22.5 MEQ/L (21.0-32.0); CALCIUM 8.2 MG/DL (8.5-10.1); CREATININE 0.99 MG/DL (0.50-1.00)
[2018-04-10 16:19] VITALS: BP 104/55; PULSE 80; RESP 18; TEMP 99.4; O2SAT 98
[2018-04-10 20:00] VITALS: BP 130/73; PULSE 91; RESP 18; TEMP 99.2; O2SAT 95
[2018-04-10] MEDS: ALPRAZolam 0.25 MG TAB PO PRN (21:56)
[2018-04-10] MEDS: PRAVASTATIN SOD 80 MG TAB PO SCH (21:56)
[2018-04-10] MEDS: LISINOPRIL 10 MG TAB PO SCH (21:57)
[2018-04-11] VITALS: BP 111/63; PULSE 87; RESP 18; TEMP 99.3; O2SAT 95
[2018-04-11] MEDS: MORPHINE SULFATE 4 MG/ML INJ IV PUSH PRN ×3 (02:20→10:42)
[2018-04-11] MEDS: CIPROFLOXACIN 400 MG PREMIX 200 ML IV SCH ×2 (02:20→16:21)
[2018-04-11 04:00] VITALS: BP 120/56; PULSE 82; RESP 18; TEMP 99.7; O2SAT 95
[2018-04-11] MEDS: SODIUM CHLOR 0.9% 1000 ML INJ 1,000 ML IV SCH ×2 (06:43→21:03)
[2018-04-11] MEDS: metroNIDAZOLE 500 MG INJ 100 ML IV SCH ×3 (06:43→21:03)
[2018-04-11 07:55] VITALS: BP 137/63; PULSE 89; RESP 20; TEMP 98.4; O2SAT 95
--- NOTE | 2018-04-11 09:37 | HHI.PR ---
Subjective Remarks in no acute distress. abdominal pain has almost resolved. no further rectal bleed over night. complaining of pain to the right knee. d/w the RN. Objective Vitals Vital Signs Date Time Temp Pulse Resp B/P (MAP) Pulse Ox O2 Delivery O2 Flow Rate FiO2 04/11/18 07:55 98.4 89 20 137/63 (87) 95 04/11/18 06:55 18 04/11/18 04:00 99.7 82 18 120/56 (77) 95 04/11/18 00:00 99.3 87 18 111/63 (79) 95 04/10/18 20:00 99.2 91 18 130/73 (92) 95 04/10/18 16:19 99.4 80 18 104/55 (71) 98 04/10/18 11:50 100.3 86 20 120/57 (78) 97 I/O 04/10/18 04/10/18 04/10/18 04/11/18 04/11/18 04/11/18 07:00 15:00 23:00 07:00 15:00 23:00 Intake Total 843 ml 1372 ml 200 ml Balance 843 ml 1372 ml 200 ml Intake Oral 0 ml IV Total 843 ml 1372 ml 200 ml # Voids 3 2 5 # Bowel Movements 0 Result Diagram: 04/10/18 1133 04/10/18 1133 Imaging Last Impressions Abdomen/Pelvis CT 04/09/18 1255 Signed Impressions: CONCLUSION: 1. Moderate severity long segment left side colitis, nonspecific but most like ly infectious or inflammatory. No abscess, perforation or obstruction. 2. Incidental findings include hepatic and left renal cysts as well as atheros clerosis of the abdominal aorta. Objective Remarks GENERAL: This is a well-nourished, well-developed patient, in no apparent distress. CARDIOVASCULAR: Regular rate and regular rhythm without murmurs, gallops, or rubs. RESPIRATORY: Clear to auscultation. Breath sounds equal bilaterally. No wheezes , rales, or rhonchi. GASTROINTESTINAL: Abdomen soft, non-tender, nondistended. Normal, active bowel sounds MUSCULOSKELETAL: right knee is swollen with some decrease in ROM. NEURO: Alert & Oriented x4 to person, place, time, situation. Moves all ext x4 Medications and IVs Inpatient Medications Alprazolam (Xanax) 0.25 mg HS PRN PO ANXIETY Last administered on 04/10/18 21: 56; Start 04/09/18 at 14:45 Ciprofloxacin/ Dextrose 200 ml @ 200 mls/hr Q12H IV Last administered on 02:20; Start 04/10/18 at 02:00 Dicyclomine HCl (Bentyl) 20 mg ONCE ONCE PO Last administered on 04/09/18 14: 42; Start 04/09/18 at 14:15; Stop 04/09/18 at 14:16; Status DC Fluticasone Propionate (Flonase Ender Spr) 1 spray DAILY PRN EACH NARE NASAL CONGESTION; Start 04/09/18 at 14:45 Lisinopril (Prinivil) 10 mg HS PO Last administered on 04/10/18 21:57; Start at 21:00 Metronidazole 100 ml @ 100 mls/hr Q8H IV Last administered on 04/11/18 06:43; Start 04/09/18 at 22:00 Morphine Sulfate (Morphine Inj) 2 mg Q4H PRN IV PUSH PAIN SCALE 1 TO 10 Last administered on 04/11/18 06:43; Start 04/10/18 at 07:30 Ondansetron HCl (Zofran Odt) 4 mg Q8HR PRN PO NAUSEA; Start 04/09/18 at 15:00 Pravastatin Sodium (Pravachol) 80 mg HS PO Last administered on 04/10/18 21:56 ; Start 04/09/18 at 21:00 Sodium Chloride 1,000 ml @ 100 mls/hr Q10H IV Last administered on 04/11/18 06 :43; Start 04/09/18 at 14:45 Sodium Chloride (NS Flush) 2 ml UNSCH PRN IV FLUSH FLUSH AFTER USING IV ACCESS Last administered on 04/10/18 21:56; Start 04/09/18 at 12:00 A/P Problem List: (1) Colitis ICD Code: K52.9 - Noninfective gastroenteritis and colitis, unspecified Status: Acute Assessment and Plan - colitis with LLQ pain/ rectal bleed- improving. continue supportive care with IV fluid/ antiemetics and pain control- continue with IV antibiotics . start on clear liquid diet and advance as tolerated. GI consult appreciated. -right knee pain/swelling ; reactive arthritis? ; will check XR- continue with pain control. -hypertension/ dyslipidemia; resumed home meds. -DVT prophylaxis with SCD's- no chemical prophylaxis due to rectal bleed. Discharge Planning possible dc within the next one-two days if stable. Taye Garcia MD Apr 11, 2018 09:37
--- NOTE | 2018-04-11 09:59 | HHI.GIFU ---
Subjective Remarks Pt reports no BMs since admission Abdominal pain is mild today, still mostly located in LLQ Denies nausea, vomiting Is hesitant to begin eating (Nova Lewis) Objective Vitals I&O Vital Signs Date Time Temp Pulse Resp B/P (MAP) Pulse Ox O2 Delivery O2 Flow Rate FiO2 04/11/18 07:55 98.4 89 20 137/63 (87) 95 04/11/18 06:55 18 04/11/18 04:00 99.7 82 18 120/56 (77) 95 04/11/18 00:00 99.3 87 18 111/63 (79) 95 04/10/18 20:00 99.2 91 18 130/73 (92) 95 04/10/18 16:19 99.4 80 18 104/55 (71) 98 04/10/18 11:50 100.3 86 20 120/57 (78) 97 I/O 04/10/18 04/10/18 04/10/18 04/11/18 04/11/18 04/11/18 06:59 14:59 22:59 06:59 14:59 22:59 Intake Total 843 ml 1272 ml 300 ml Balance 843 ml 1272 ml 300 ml Intake Oral 0 ml IV Total 843 ml 1272 ml 300 ml # Voids 3 2 5 # Bowel Movements 0 Laboratory Laboratory Tests Test 04/10/18 11:33 White Blood Count 11.6 Red Blood Count 3.61 Hemoglobin 11.0 Hematocrit 33.4 Mean Corpuscular Volume 92.6 Mean Corpuscular Hemoglobin 30.6 Mean Corpuscular Hemoglobin Concent 33.1 Red Cell Distribution Width 13.9 Platelet Count 279 Mean Platelet Volume 8.6 Neutrophils (%) (Auto) 74.5 Lymphocytes (%) (Auto) 15.8 Monocytes (%) (Auto) 7.7 Eosinophils (%) (Auto) 1.5 Basophils (%) (Auto) 0.5 Neutrophils # (Auto) 8.7 Lymphocytes # (Auto) 1.8 Monocytes # (Auto) 0.9 Eosinophils # (Auto) 0.2 Basophils # (Auto) 0.1 CBC Comment DIFF FINAL Differential Comment Blood Urea Nitrogen 8 Creatinine 0.99 Random Glucose 100 Calcium Level 8.2 Sodium Level 144 Potassium Level 3.8 Chloride Level 110 Carbon Dioxide Level 22.5 Anion Gap 12 Estimat Glomerular Filtration Rate 54 Date/Time Source Procedure Growth Status 04/09/18 14:55 Blood Peripheral Aerobic Blood Culture - Preliminary NO GROWTH IN 1 DAY Resulted 04/09/18 14:55 Blood Peripheral Anaerobic Blood Culture - Preliminary NO GROWTH IN 1 DAY Resulted Imaging Last Impressions Abdomen/Pelvis CT 04/09/18 1255 Signed Impressions: CONCLUSION: 1. Moderate severity long segment left side colitis, nonspecific but most like ly infectious or inflammatory. No abscess, perforation or obstruction. 2. Incidental findings include hepatic and left renal cysts as well as atheros clerosis of the abdominal aorta. Physical Exam HEENT: Normocephalic; atraumatic CHEST: Even/unlabored CARDIAC: RRR ABDOMEN: Soft, nondistended, mild LLQ tenderness, bowel sounds active EXTREMITIES: No clubbing, cyanosis, or edema. SKIN: Normal; no rash; no jaundice. CASK MAKER: Alert and oriented times three. (Nova Lewis) Assessment and Plan Plan Assessment: - Diarrhea with rectal bleeding Began Tuesday at midnight and lasted into early Tuesday morning. Last BM was early Tuesday morning. States mostly blood and little stool mixed in. Associated lower abdominal pain worse on the left side. Pt denies history of C. Diff, recent travel, recent abx. Of note, reports eating frozen lobster prior to symptom onset. Associated sweats and chills. Denies sick contacts with similar symptoms. CT abdomen and pelvis W IV contrast --> Moderate severity long segment left side colitis, nonspecific but most likely infectious or inflammatory. No abscess, perforation or obstruction. Incidental findings include hepatic and left renal cysts as well as atherosclerosis of the abdominal aorta. (04/11) Pt has had no BMs since admission, therefore stool studies have not been sent. She reports improvements in her symptoms, still some mild LLQ pain. Denies nausea, vomiting. she is hesitant to start eating. Discussed with RN, start on clear liquids and advance as tolerated. Continue Cipro and Flagyl Small drop in H/H noted, likely dilutional secondary to IVF Plan: Continue Cipro and Flagyl Start on clear liquids and advance as tolerated GI will sign off, please reconsult as needed Have pt follow up with GI after DC Pt has been seen and examined by myself and Dr. Villagomez and this note is written on his behalf (Nova Lewis) Physician Comments As above, please notify us if needed again, will follow up with you if needed. (Vimal Villagomez MD) Nova Lewis Apr 11, 2018 09:59 Vimal Villagomez MD Apr 11, 2018 12:17
[2018-04-11 12:28] VITALS: BP 140/63; PULSE 89; RESP 20; TEMP 100.2; O2SAT 95
[2018-04-11] MEDS: ACETAMINOPHEN/HYDROcodone 325 MG/5 MG TAB PO PRN ×3 (12:42→21:04)
--- NOTE | 2018-04-11 12:52 | RADRPT ---
EXAM DATE: 04/11/2018 12:26 PM EDT AGE/SEX: 77 years / Female INDICATIONS: Pain in right anterior and posterior knee starting yesterday. No known injury. CLINICAL DATA: This is the patient's initial encounter. Patient reports that signs and symptoms have been present for 1 day and indicates a pain score of 10/10. MEDICAL/SURGICAL HISTORY: None. None. COMPARISON: No prior exams available for comparison. FINDINGS: No fracture is seen. The knee joint is aligned. There is minimal spurring at the medial joint space. There is a moderate to large joint effusion. CONCLUSION: Moderate to large joint effusion. Electronically signed by: Steve Crowley MD 04/11/2018 12:51 PM EDT
[2018-04-11 16:01] VITALS: BP 113/57; PULSE 78; RESP 20; TEMP 98.8; O2SAT 94
[2018-04-11 20:00] VITALS: BP 135/73; PULSE 95; RESP 18; TEMP 98.8; O2SAT 92
[2018-04-11] MEDS: PRAVASTATIN SOD 80 MG TAB PO SCH (21:03)
[2018-04-11] MEDS: ALPRAZolam 0.25 MG TAB PO PRN (21:03)
[2018-04-11] MEDS: LISINOPRIL 10 MG TAB PO SCH (21:03)
[2018-04-12] VITALS: BP 106/54; PULSE 79; RESP 18; TEMP 98.4; O2SAT 95
[2018-04-12] MEDS: CIPROFLOXACIN 400 MG PREMIX 200 ML IV SCH ×2 (02:37→14:38)
[2018-04-12] MEDS: SODIUM CHLOR 0.9% 1000 ML INJ 1,000 ML IV SCH ×3 (02:45→22:47)
[2018-04-12 04:00] VITALS: BP 102/66; PULSE 89; RESP 18; TEMP 99.6; O2SAT 97
[2018-04-12] MEDS: metroNIDAZOLE 500 MG INJ 100 ML IV SCH ×3 (05:30→22:45)
[2018-04-12] MEDS: ACETAMINOPHEN/HYDROcodone 325 MG/5 MG TAB PO PRN ×2 (05:40→22:45)
--- NOTE | 2018-04-12 07:37 | PD.OP ---
Operative Report Date of Surgery: Apr 12, 2018 Preoperative Diagnosis: (1) Knee pain Postoperative Diagnosis: (1) Knee pain Procedure: Right knee aspiration Surgeon: Bhaskar Chakraborty Administrative Services Officer(s): none Operation and Findings: After informed consent was given for right needle aspirate, the right knee was sterilely prepped with alcohol and Betadine. The lateral edge of the patella was palpated until the posterior edge and joint was identified. A 20-gauge spinal needle was used to aspirate the knee. 60 cc of milky synovial fluid was aspirated. The area was then cleansed with alcohol and sterilely bandaged. The patient tolerated the procedure well Bhaskar Chakraborty/First Kate DELANEY Apr 12, 2018 07:37
[2018-04-12 08:00] VITALS: BP 128/61; PULSE 73; RESP 16; TEMP 98.6; O2SAT 95
--- NOTE | 2018-04-12 08:17 | MB ---
cc: Bhaskar Chakraborty PA/J2Ee Architect Rober Garner MD DATE: 04/12/2018 CHIEF COMPLAINT: Right knee pain and swelling. HISTORY OF PRESENT ILLNESS: The patient is a 77-year-old white female who was admitted to the hospital on 04/09/2018, for left lower quadrant abdominal pain and bloody stools. She states that she had diarrhea with bloody stools and also reports that she had fevers, chills and sweats. She was worked up from a GI perspective and found to have infectious versus inflammatory colitis of the descending colon. She was started on antibiotics in-house. She states that she has had knee pain for approximately 1 day. The patient reports pain in the right knee. She also reports swelling. She states pain with movement and weightbearing. She reports that she has a history of arthritis, being treated by Dr. Burke Dumont. She reports that she has had flare-ups in the past like this, but they have only happened when she did a lot of walking. She reports no significant amount of walking recently. She states the pain has not really improved or gotten worse. She denies any numbness, tingling or radiation of symptoms. REVIEW OF SYSTEMS: Negative, except for what is in the HPI. PAST MEDICAL HISTORY: Positive for hypertension, dyslipidemia. PAST SURGICAL HISTORY: Positive for hysterectomy. REPORTED MEDICATIONS: Please see the EMR for the complete list. ALLERGIES: ALLERGIC TO MEPERIDINE. PHYSICAL EXAMINATION: VITAL SIGNS: Temperature 98.4, pulse 79, respiratory rate 18, blood pressure 106/54, O2 saturation 95% on room air. GENERAL: Well-developed, well-nourished 77-year-old white female, resting comfortably, in no acute distress. HEAD: Normocephalic, atraumatic. EARS: Hearing intact bilaterally. NEUROLOGIC: Cranial nerves 2-12 grossly intact. NECK: Supple. No evidence of lymphadenopathy. EYES: Extraocular motions intact and pupils are equal, round and reactive to light. LUNGS: No auditory wheezes at bedside. No use of accessory muscles while breathing. ABDOMEN: Soft and nontender. HEART: No grade 4 murmur present at bedside. MUSCULOSKELETAL: Right knee: No pain with movement of the hip, ankle or toes. She has 2+ swelling of the knee with a ballotable patella. There is fluid palpable in the joint. She has passive motion of the knee from 0-80 degrees before pain is experienced. There is no evidence of erythema present. She has full sensation distally. Left leg: Full motion of the hip, knee, ankle and toes. No pain with full sensation distally. Bilateral upper extremities: Full motion of the shoulders, elbows, wrists and fingers. No pain with full sensation distally. IMAGING: X-rays of the right knee were reviewed from [facility], which show minimal evidence of osteoarthritis. ASSESSMENT: Possible arthritis flare-up of right knee. PLAN: Treatment options were discussed with the patient. It is likely that this is an osteoarthritic flare-up of her right knee. However, with her recent possible infection of her colon and being on antibiotics paired with her significant increase in pain and swelling, I would recommend a knee aspirate at bedside today. I discussed the risks and benefits of this procedure with the patient, which include bleeding, infection, pain. Informed consent was given for needle aspirate of the right knee. This was performed at bedside with minimal complications. The patient tolerated it well. 60 mL of milky synovial fluid were aspirated from the right knee joint. It was replaced with a sterile dressing. These results will be sent for cell count, cultures and sensitivity and Gram stain, and we will evaluate once done. Assuming there is no infection, we will treat conservatively and she can follow up with Dr. Burke Dumont on an outpatient basis for continued osteoarthritic care of her right knee. I informed the patient that if it did show any sign of infection that it would require surgical irrigation and debridement. We will send the cultures today and we will monitor. She may fully weight bear with no restrictions at this time. We will follow along for cultures. The above patient was reviewed and discussed with Dr. Garner, who agrees. RHETT Paredes, PA/J2Ee Architect POLO/KAVON , 07:34 AM , 08:16 AM
[2018-04-12 09:42] LABS: WBC, SYNOVIAL FLUID 17550 /MM3 (0-200)
--- NOTE | 2018-04-12 11:08 | HHI.PR ---
Subjective Remarks in no acute distress. pain to the right knee has much improved. no further rectal bleed- abdominal pain has resolved. no fever. d/w the RN. Objective Vitals Vital Signs Date Time Temp Pulse Resp B/P (MAP) Pulse Ox O2 Delivery O2 Flow Rate FiO2 04/12/18 08:00 98.6 73 16 128/61 (83) 95 04/12/18 06:50 19 04/12/18 04:00 99.6 89 18 102/66 (78) 97 04/12/18 00:00 98.4 79 18 106/54 (71) 95 04/11/18 20:00 98.8 95 18 135/73 (93) 92 04/11/18 16:01 98.8 78 20 113/57 (75) 94 04/11/18 12:28 100.2 89 20 140/63 (88) 95 I/O 04/11/18 04/11/18 04/11/18 04/12/18 04/12/18 04/12/18 07:00 15:00 23:00 07:00 15:00 23:00 Intake Total 200 ml 480 ml 100 ml Balance 200 ml 480 ml 100 ml Intake Oral 480 ml IV Total 200 ml 100 ml # Voids 5 2 Result Diagram: 04/10/18 1133 04/10/18 1133 Imaging Last Impressions Knee X-Ray 04/11/18 0000 Signed Impressions: CONCLUSION: Moderate to large joint effusion. Abdomen/Pelvis CT 04/09/18 1255 Signed Impressions: CONCLUSION: 1. Moderate severity long segment left side colitis, nonspecific but most like ly infectious or inflammatory. No abscess, perforation or obstruction. 2. Incidental findings include hepatic and left renal cysts as well as atheros clerosis of the abdominal aorta. Objective Remarks GENERAL: This is a well-nourished, well-developed patient, in no apparent distress. CARDIOVASCULAR: Regular rate and regular rhythm without murmurs, gallops, or rubs. RESPIRATORY: Clear to auscultation. Breath sounds equal bilaterally. No wheezes , rales, or rhonchi. GASTROINTESTINAL: Abdomen soft, non-tender, nondistended. Normal, active bowel sounds MUSCULOSKELETAL: right knee is swollen with some decrease in ROM. NEURO: Alert & Oriented x4 to person, place, time, situation. Moves all ext x4 Procedures arthrocentesis-right knee. Medications and IVs Inpatient Medications Acetaminophen/ Hydrocodone Bitart ([place] 5-325 Mg) 2 tab Q4H PRN PO PAIN 6-10 Last administered on 04/12/18 05:40; Start 04/11/18 at 09:45 Alprazolam (Xanax) 0.25 mg HS PRN PO ANXIETY Last administered on 04/11/18 21: 03; Start 04/09/18 at 14:45 Ciprofloxacin/ Dextrose 200 ml @ 200 mls/hr Q12H IV Last administered on 02:37; Start 04/10/18 at 02:00 Dicyclomine HCl (Bentyl) 20 mg ONCE ONCE PO Last administered on 04/09/18 14: 42; Start 04/09/18 at 14:15; Stop 04/09/18 at 14:16; Status DC Fluticasone Propionate (Flonase Ender Spr) 1 spray DAILY PRN EACH NARE NASAL CONGESTION; Start 04/09/18 at 14:45 Lisinopril (Prinivil) 10 mg HS PO Last administered on 04/11/18 21:03; Start at 21:00 Metronidazole 100 ml @ 100 mls/hr Q8H IV Last administered on 04/12/18 05:30; Start 04/09/18 at 22:00 Morphine Sulfate (Morphine Inj) 2 mg Q4H PRN IV PUSH BREAKTHROUGH PAIN Last administered on 04/11/18 10:42; Start 04/10/18 at 07:30 Ondansetron HCl (Zofran Odt) 4 mg Q8HR PRN PO NAUSEA; Start 04/09/18 at 15:00 Pravastatin Sodium (Pravachol) 80 mg HS PO Last administered on 04/11/18 21:03 ; Start 04/09/18 at 21:00 Sodium Chloride 1,000 ml @ 100 mls/hr Q10H IV Last administered on 04/11/18 21 :03; Start 04/09/18 at 14:45 Sodium Chloride (NS Flush) 2 ml UNSCH PRN IV FLUSH FLUSH AFTER USING IV ACCESS Last administered on 04/10/18 21:56; Start 04/09/18 at 12:00 A/P Problem List: (1) Colitis ICD Code: K52.9 - Noninfective gastroenteritis and colitis, unspecified Status: Acute Assessment and Plan - colitis with LLQ pain/ rectal bleed- improving. continue supportive care with IV fluid/ antiemetics and pain control- continue with IV antibiotics . start on clear liquid diet and advance as tolerated. will start back on diet when ok with ortho. GI consult appreciated. -right knee pain/swelling with joint effusion- s/p arthrocentesis- likely pseudo -gout- continue with pain control- follow the cultures- will consider adding prednisone- ortho following. -hypertension/ dyslipidemia; resumed home meds. -DVT prophylaxis with SCD's- no chemical prophylaxis due to rectal bleed. Discharge Planning possible dc within the next one-two days if stable. Taye Garcia MD Apr 12, 2018 11:08
--- NOTE | 2018-04-12 11:19 | PD.ORT.PN ---
Subjective Subjective Remarks s/p right knee swelling Objective Vitals Vital Signs Date Time Temp Pulse Resp B/P (MAP) Pulse Ox O2 Delivery O2 Flow Rate FiO2 04/12/18 08:00 98.6 73 16 128/61 (83) 95 04/12/18 06:50 19 04/12/18 04:00 99.6 89 18 102/66 (78) 97 04/12/18 00:00 98.4 79 18 106/54 (71) 95 04/11/18 20:00 98.8 95 18 135/73 (93) 92 04/11/18 16:01 98.8 78 20 113/57 (75) 94 04/11/18 12:28 100.2 89 20 140/63 (88) 95 I/O 04/11/18 04/11/18 04/11/18 04/12/18 04/12/18 04/12/18 07:00 15:00 23:00 07:00 15:00 23:00 Intake Total 200 ml 480 ml 100 ml Balance 200 ml 480 ml 100 ml Intake Oral 480 ml IV Total 200 ml 100 ml # Voids 5 2 Result Diagram: 04/10/18 1133 04/10/18 1133 Objective Remarks RLE: +swelling. ROM 0-80 Assessment & Plan Assessment and Plan 1) right Knee pseudogout -aspirate done this AM came back with calcium phosphate crystals. positive for pseudogout -no further ortho services needed -f/u outpatient -ortho signing off Bhaskar Chakraborty/Insurance Verification Clerk PA Apr 12, 2018 11:19
[2018-04-12 12:00] VITALS: BP 128/61; PULSE 81; RESP 16; TEMP 98.2; O2SAT 99
[2018-04-12] MEDS: predniSONE 10 MG TAB PO SCH (15:12)
[2018-04-12 16:00] VITALS: BP 143/66; PULSE 89; RESP 16; TEMP 99.3; O2SAT 94
[2018-04-12 20:00] VITALS: BP 118/58; PULSE 85; RESP 18; TEMP 98.6; O2SAT 93
[2018-04-12] MEDS: LISINOPRIL 10 MG TAB PO SCH (22:44)
[2018-04-12] MEDS: PRAVASTATIN SOD 80 MG TAB PO SCH (22:45)
[2018-04-13] VITALS: BP 125/58; PULSE 82; RESP 18; TEMP 98.7; O2SAT 94
[2018-04-13] MEDS: CIPROFLOXACIN 400 MG PREMIX 200 ML IV SCH ×2 (02:11→14:07)
[2018-04-13] MEDS: ACETAMINOPHEN/HYDROcodone 325 MG/5 MG TAB PO PRN ×2 (02:16→08:36)
[2018-04-13 04:00] VITALS: BP 114/55; PULSE 74; RESP 18; TEMP 97.3; O2SAT 97
[2018-04-13] MEDS: metroNIDAZOLE 500 MG INJ 100 ML IV SCH ×2 (05:21→14:07)
[2018-04-13 08:00] VITALS: BP 116/58; PULSE 79; RESP 17; TEMP 97.7; O2SAT 94
[2018-04-13] MEDS: predniSONE 10 MG TAB PO SCH (08:22)
[2018-04-13] MEDS: SODIUM CHLOR 0.9% 1000 ML INJ 1,000 ML IV SCH (08:22)
--- NOTE | 2018-04-13 09:58 | HHI.PR ---
Subjective Remarks in no acute distress. looks comfortable. had her breakfast with no complaints. no fever. right knee is much better. Objective Vitals Vital Signs Date Time Temp Pulse Resp B/P (MAP) Pulse Ox O2 Delivery O2 Flow Rate FiO2 04/13/18 04:00 97.3 74 18 114/55 (74) 97 04/13/18 00:00 98.7 82 18 125/58 (80) 94 04/12/18 20:00 98.6 85 18 118/58 (78) 93 04/12/18 16:00 99.3 89 16 143/66 (91) 94 04/12/18 12:00 98.2 81 16 128/61 (83) 99 I/O 04/12/18 04/12/18 04/12/18 04/13/18 04/13/18 04/13/18 07:00 15:00 23:00 07:00 15:00 23:00 Intake Total 100 ml Balance 100 ml IV Total 100 ml # Voids 3 4 Result Diagram: 04/10/18 1133 04/10/18 1133 Imaging Last Impressions Knee X-Ray 04/11/18 0000 Signed Impressions: CONCLUSION: Moderate to large joint effusion. Abdomen/Pelvis CT 04/09/18 1255 Signed Impressions: CONCLUSION: 1. Moderate severity long segment left side colitis, nonspecific but most like ly infectious or inflammatory. No abscess, perforation or obstruction. 2. Incidental findings include hepatic and left renal cysts as well as atheros clerosis of the abdominal aorta. Objective Remarks GENERAL: This is a well-nourished, well-developed patient, in no apparent distress. CARDIOVASCULAR: Regular rate and regular rhythm without murmurs, gallops, or rubs. RESPIRATORY: Clear to auscultation. Breath sounds equal bilaterally. No wheezes , rales, or rhonchi. GASTROINTESTINAL: Abdomen soft, non-tender, nondistended. Normal, active bowel sounds MUSCULOSKELETAL: right knee is swollen with some decrease in ROM. NEURO: Alert & Oriented x4 to person, place, time, situation. Moves all ext x4 Procedures arthrocentesis-right knee. Medications and IVs Inpatient Medications Acetaminophen/ Hydrocodone Bitart ([place] 5-325 Mg) 2 tab Q4H PRN PO PAIN 6-10 Last administered on 04/12/18at 05:40; Start 04/11/18 at 09:45 Alprazolam (Xanax) 0.25 mg HS PRN PO ANXIETY Last administered on 04/11/18 21: 03; Start 04/09/18 at 14:45 Ciprofloxacin/ Dextrose 200 ml @ 200 mls/hr Q12H IV Last administered on 02:11; Start 04/10/18 at 02:00 Dicyclomine HCl (Bentyl) 20 mg ONCE ONCE PO Last administered on 04/09/18 14: 42; Start 04/09/18 at 14:15; Stop 04/09/18 at 14:16; Status DC Fluticasone Propionate (Flonase Ender Spr) 1 spray DAILY PRN EACH NARE NASAL CONGESTION; Start 04/09/18 at 14:45 Lisinopril (Prinivil) 10 mg HS PO Last administered on 04/12/18 22:44; Start at 21:00 Metronidazole 100 ml @ 100 mls/hr Q8H IV Last administered on 04/13/18 05:21; Start 04/09/18 at 22:00 Morphine Sulfate (Morphine Inj) 2 mg Q4H PRN IV PUSH BREAKTHROUGH PAIN Last administered on 04/11/18 10:42; Start 04/10/18 at 07:30 Ondansetron HCl (Zofran Odt) 4 mg Q8HR PRN PO NAUSEA Last administered on 15:12; Start 04/09/18 at 15:00 Pravastatin Sodium (Pravachol) 80 mg HS PO Last administered on 04/12/18 22:45 ; Start 04/09/18 at 21:00 Prednisone (Deltasone) 30 mg DAILY PO Last administered on 04/13/18 08:22; Start 04/12/18 at 14:00 Sodium Chloride 1,000 ml @ 100 mls/hr Q10H IV Last administered on 04/13/18 08 :22; Start 04/09/18 at 14:45 Sodium Chloride (NS Flush) 2 ml UNSCH PRN IV FLUSH FLUSH AFTER USING IV ACCESS Last administered on 04/10/18 21:56; Start 04/09/18 at 12:00 A/P Problem List: (1) Colitis ICD Code: K52.9 - Noninfective gastroenteritis and colitis, unspecified Status: Acute Assessment and Plan - colitis with LLQ pain/ rectal bleed- improving. switch to oral antibiotic upon discharge. GI signed off. -right knee pain/swelling with joint effusion- s/p arthrocentesis- likely pseudo -gout-fluid culture negative so far. continue with prednisone and pain control- -hypertension/ dyslipidemia; resumed home meds. -DVT prophylaxis with SCD's- no chemical prophylaxis due to rectal bleed. Discharge Planning dc home this afternoon if tolerates the lunch. f/u; pcp. see med list. d/w the patient. Taye Garcia MD Apr 13, 2018 09:58
[2018-04-13] MEDS ORDERED: CIPR-9 PO (10:01)
[2018-04-13] MEDS ORDERED: HYDR-3516 PO (10:01)
[2018-04-13] MEDS ORDERED: PRED5TAB PO (10:01)
[2018-04-13] MEDS ORDERED: METR-1 PO (10:01)
--- NOTE | 2018-04-13 10:01 | HHI.DS ---
Discharge Summary Admission Date Apr 09, 2018 at 14:37 Discharge Date: Apr 13, 2018 Admitting Diagnosis sepsis, colitis (1) Colitis ICD Code: K52.9 - Noninfective gastroenteritis and colitis, unspecified Diagnosis: Principal Status: Acute Procedures arthrocentesis-right knee. Brief History - From Admission patient is a 77 y/o female with history of hypertension and dyslipidemia who presented to ER with abdominal pain. she says that the pain started last night. pain is more or less localized to LLQ.pain was severe and colicky in nature. she had some nausea with no emesis. she had some fever, chills and night sweats. she says that when she went to bathroom this morning she had loose blood bowel movement with passing of about a cup of bight red blood. she says that she had some frozen lobster last night which probably ' was the reason'. she had a colonoscopy five or six years ago with no reported abnormality. CBC/BMP: 04/10/18 1133 04/10/18 1133 Significant Findings Laboratory Tests Test 04/10/18 11:33 04/11/18 11:15 04/12/18 07:20 White Blood Count 11.6 TH/MM3 (4.0-11.0) Red Blood Count 3.61 MIL/MM3 (4.00-5.30) Hemoglobin 11.0 GM/DL (11.6-15.3) Hematocrit 33.4 % (35.0-46.0) Neutrophils (%) (Auto) 74.5 % (16.0-70.0) Neutrophils # (Auto) 8.7 TH/MM3 (1.8-7.7) Calcium Level 8.2 MG/DL (8.5-10.1) Chloride Level 110 MEQ/L (98-107) Estimat Glomerular Filtration Rate 54 ML/MIN (>89) Uric Acid 6.6 MG/DL (2.6-6.0) Synovial Fluid Appearance MARKED (CLEAR) Synovial Fluid WBC 95779 /MM3 (0-200) Synovial Fluid RBC 150 /MM3 (0-0) Synovial Fluid Neutrophils 96 % (0-25) Synovial Fluid Crystals POS - CALCIUM PYRO (NONE) Imaging Last Impressions Knee X-Ray 04/11/18 0000 Signed Impressions: CONCLUSION: Moderate to large joint effusion. Abdomen/Pelvis CT 04/09/18 1255 Signed Impressions: CONCLUSION: 1. Moderate severity long segment left side colitis, nonspecific but most like ly infectious or inflammatory. No abscess, perforation or obstruction. 2. Incidental findings include hepatic and left renal cysts as well as atheros clerosis of the abdominal aorta. PE at Discharge GENERAL: This is a well-nourished, well-developed patient, in no apparent distress. CARDIOVASCULAR: Regular rate and regular rhythm without murmurs, gallops, or rubs. RESPIRATORY: Clear to auscultation. Breath sounds equal bilaterally. No wheezes , rales, or rhonchi. GASTROINTESTINAL: Abdomen soft, non-tender, nondistended. Normal, active bowel sounds MUSCULOSKELETAL: right knee is swollen with some decrease in ROM. NEURO: Alert & Oriented x4 to person, place, time, situation. Moves all ext x4 Hospital Course - colitis with LLQ pain/ rectal bleed- improving. switch to oral antibiotic upon discharge. GI signed off. -right knee pain/swelling with joint effusion- s/p arthrocentesis- likely pseudo -gout-fluid culture negative so far. continue with prednisone and pain control- -hypertension/ dyslipidemia; resumed home meds. Pt Condition on Discharge: Good Discharge Disposition: Discharge Home Discharge Time: <= 30 minutes Discharge Instructions DIET: Follow Instructions for: Heart Healthy Diet Activities you can perform: Regular-No Restrictions Taye Garcia MD Apr 13, 2018 10:01
[2018-04-13 12:00] VITALS: BP 131/58; PULSE 81; RESP 17; TEMP 97.9; O2SAT 97
== END 2018-04-13 17:09 | disposition home or self-care (01) | DRG 387 ==
LOC: NEPC 11:43 → NEDA 14:37 → N05B 16:50
PROVIDERS: ADMIT Internal Medicine; ATTEND Internal Medicine
PROC: 0S9C3ZZ Drainage of Right Knee Joint, Percutaneous Approach (ICD-10-PCS; principal; 2018-04-12)
DX: K51.50 Left sided colitis without complications (principal); N28.1 Cyst of kidney, acquired; I10 Essential (primary) hypertension; E78.5 Hyperlipidemia, unspecified; E78.00 Pure hypercholesterolemia, unspecified; K21.9 Gastro-esophageal reflux disease without esophagitis; E66.9 Obesity, unspecified; R00.0 Tachycardia, unspecified; I70.0 Atherosclerosis of aorta; M17.11 Unilateral primary osteoarthritis, right knee; M11.261 Other chondrocalcinosis, right knee; Z68.37 Body mass index [BMI] 37.0-37.9, adult; Z80.0 Family history of malignant neoplasm of digestive organs
CPT/HCPCS: 73564; 74177; 80048; 80053; 81001; 83605; 83690; 84550; 85025; 85610; 85730; 86850; 86900; 86901; 87015; 87040; 87070; 87102; 87116; 87205; 87206; 89051; 89060; 96360; 96361; J0744; J2270; J7030; J7512; Q9967